=== PATIENT | female | born 1975 | race Caucasian/White ===

== ENCOUNTER → 2020-06-04 | Outpatient (CLI) | payer OTHER ==
--- NOTE | 2020-06-04 16:32 | RAD ---
XR HIP_LT 2-3 VIEWS, XR BILATERAL HIP (WITH OR WITHOUT PELVIS) 2 VIEWS_RIGHT 06/04/2020 9:50 AM INDICATION: Hip pain COMPARISON: None available. TECHNIQUE: AP view the pelvis. 2 dedicated views of each hip are provided. FINDINGS/ IMPRESSION: There is no acute fracture or dislocation. Mild to moderate inferomedial joint space narrowing of the right hip joint compatible with mild osteophytosis. No significant joint space narrowing the left hi p.. Bone mineralization is within normal limits. Regional soft tissues are within normal limits. Ther e is no soft tissue gas or osseous erosion. No radiopaque foreign body. Electronically signed by: Cornelia Grijalva MD (06/04/2020 4:30 PM) [id number]
--- NOTE | 2020-06-04 16:35 | RAD ---
XR LUMBAR SPINE 2-3V 06/04/2020 9:50 AM Indication: Low back pain COMPARISON: None available TECHNIQUE: 3 views of the lumbar spine are provided. Findings: There is minimal retrolisthesis of L1 on L2, L2 on L3, L3 on L4 and L4 on L5. Grade 1 retrolisthesis of L5 and S1. Mild disc height loss at L1-L2, L2-L3, L3-L4 and L5-S1. There is mild anterior wedging of L1 without significant height loss. Superior plate Schmorl's nodes are identified at L2, L3 and L4 without significant height loss. Mild to moderate facet arthropathy. No significant osseous neuroforaminal stenosis or spinal canal st enosis. Nonobstructive bowel gas pattern. Visualized portions of the sacrum appear intact. Impression: No acute fracture of the lumbar spine. There is mild lumbar spondylosis. Electronically signed by: Cornelia Grijalva MD (06/04/2020 4:33 PM) [id number]
== END ==
LOC: PMG 09:35
PROVIDERS: ATTEND Family Medicine
DX: M47.816 Spondylosis without myelopathy or radiculopathy, lumbar region (principal); M43.17 Spondylolisthesis, lumbosacral region; M25.751 Osteophyte, right hip; M25.551 Pain in right hip
CPT/HCPCS: 72100; 73502

== ENCOUNTER 2021-02-19 10:57 | Emergency (ER) | payer OTHER ==
[~2021-02-19] VITALS: Ht 170.2 cm; Wt 104.5 kg
[2021-02-19] MEDS ORDERED: HYDROcodone/APAP 5/325MG 1 TAB TABLET PO ONE (11:30)
--- NOTE | 2021-02-19 11:57 | RAD ---
EXAM: XR FOOT_LEFT 3 VIEWS 02/19/2021 11:24 AM CLINICAL INDICATION: Injury 2 weeks ago to foot, pain at base of fifth metatarsal. [place] a pop today. COMPARISON: None TECHNIQUE: 3 views of the left foot FINDINGS: There is a nondisplaced oblique fracture of the proximal fifth metatarsal shaft. There is associated cortical thickening. Alignment is normal. Joint spaces are maintained. Small Achilles inse rtional calcaneal enthesophyte. No focal soft tissue abnormality. IMPRESSION: Nondisplaced fifth metatarsal shaft fracture. Electronically signed by: Sally Grant MD (02/19/2021 11:55 AM) [id number]
[2021-02-19] MEDS ORDERED: HYDR-2155 PO (12:39)
--- NOTE | 2021-02-19 12:40 | PHYS DOC ---
Past History Past Surgical History: (LILIBETH CARRILLO APRN) Alcohol Use: Occasionally (LILIBETH CARRILLO APRN) General Adult EDM: Chief Complaint: FOOT INJURY PAIN HPI: HPI: Patient is a 45-year-old female who presents with left foot pain. Patient states "my son stepped on my foot a couple weeks ago and I have had pain in my foot since then". "This morning I was walking and heard my left foot pop". Patient states she is not been able to ambulate and has pain with range of m otion. Patient reports taking Motrin and ibuprofen prior to arrival at 7 AM. (LILIBETH CARRILLO APRN) Review of Systems: Review of Systems: ROS At least 10 ROS systems have been reviewed and are negative except as documented in the HPI. General: Negative except as outlined in HPI above. Skin: Negative except as outlined in HPI above. HEENT: Negative except as outlined in HPI above. Neck: Negative except as outlined in HPI above. Respiratory: Negative except as outlined in HPI above.. Cardiovascular: Negative except as outlined in HPI above. Abdomen: Negative except as outlined in HPI above. : Negative except as outlined in HPI above. Back/MSK: Negative except as outlined in HPI above. Neuro: Negative except as outlined in HPI above. Psych: Negative except as outlined in HPI above. (LILIBETH CARRILLO APRN) Current Medications: Current Meds: Current Medications Medications (Trade) Dose Ordered Sig/Ulisses Start Time Stop Time Status Last Admin Dose Admin Acetaminophen/ Hydrocodone Bitart (Lortab 5/325) 1 tab 1X ONCE 02/19/21 11:30 02/19/21 11:31 DC 02/19/21 11:51 1 TAB (LILIBETH CARRILLO APRN) Allergies: Allergies: Allergies Coded Allergies Type Severity Reaction Last Updated Verified neomycin Allergy Unknown Rash 02/19/21 Yes (LILIBETH CARRILLO APRN) Physical Exam: PE: Constitutional: Well developed, well nourished, no acute distress, non-toxic appearance. [] HENT: Normocephalic, atraumatic, bilateral external ears normal, oropharynx moist, no oral exudates, nose normal. [] Eyes: PERRLA, EOMI, conjunctiva normal, no discharge. [] Neck: Normal range of motion, no tenderness, supple, no stridor. [] Cardiovascular:Heart rate regular rhythm, no murmur [] Lungs & Thorax: Bilateral breath sounds clear to auscultation [] Abdomen: Bowel sounds normal, soft, no tenderness, no masses, no pulsatile masses. [] Skin: Warm, dry, no erythema, no rash. [] Back: No tenderness, no CVA tenderness. [] Extremities: Left foot tenderness, ROM intact, no edema. [] Neurologic: Alert and oriented X 3, normal motor function, normal sensory function, no focal deficits noted. [] Psychologic: Affect normal, judgement normal, mood normal. [] (LILIBETH CARRILLO APRN) Current Patient Data: Vital Signs: Vital Signs Date Time Temp Pulse Resp B/P (MAP) Pulse Ox O2 Delivery O2 Flow Rate FiO2 02/19/21 11:51 18 98 Room Air 02/19/21 11:09 98.2 77 124/74 (LILIBETH CARRILLO APRN) EKG: EKG: [] (LILIBETH CARRILLO APRN) Radiology/Procedures: Radiology/Procedures: []EXAM: XR FOOT_LEFT 3 VIEWS 02/19/2021 11:24 AM CLINICAL INDICATION: Injury 2 weeks ago to foot, pain at base of fifth metatarsal. [place] a pop today. COMPARISON: None TECHNIQUE: 3 views of the left foot FINDINGS: There is a nondisplaced oblique fracture of the proximal fifth metatarsal shaft. There is associated cortical thickening. Alignment is normal. Joint spaces are maintained. Small Achilles insertional calcaneal enthesophyte. No focal soft tissue abnormality. IMPRESSION: Nondisplaced fifth metatarsal shaft fracture. Electronically signed by: Sally Grant MD (02/19/2021 11:55 AM) [id number] (LILIBETH CARRILLO APRN) Heart Score: C/O Chest Pain: No Risk Factors: Risk Factors: DM, Current or recent (<one month) smoker, HTN, HLP, family history of CAD, obesity. Risk Scores: Score 0 - 3: 2.5% MACE over next 6 weeks - Discharge Home Score 4 - 6: 20.3% MACE over next 6 weeks - Admit for Clinical Observation Score 7 - 10: 72.7% MACE over next 6 weeks - Early Invasive Strategies (LILIBETH CARRILLO APRN) Course & Med Decision Making: Course & Med Decision Making Pertinent Labs and Imaging studies reviewed. (See chart for details) [] 45-year-old female presents with left foot pain after walking today and hearing her left foot pop. Neurovascularly intact. Unable to bear weight, pain with ROM. Patient given 5/325 hydrocodone. X-ray of left foot shows Nondisplaced fifth metatarsal shaft fracture. \\Posterior Ankle Splint, crutches, strict NWB, RICE, ortho follow up in 3-5 days. Patient sent home with hydrocodone for pain. Ibuprofen at home for breakthrough pain. Patient states she understands discharge instructions. (LILIBETH CARRILLO APRN) Course & Med Decision Making I was the Attending physician on the above date of service of this patient. This patient was evaluated, examined, treated, and dispositioned from the emergency department by the mid-level practitioner. I agreed need for splint/cast and outpatient Ortho follow-up Electronically signed, Bennie Steele DO (BENNIE STEELE DO) Lupillo Disclaimer: Lupillo Disclaimer: This electronic medical record was generated, in whole or in part, using a voice recognition dictation system. (LILIBETH CARRILLO APRN) Departure Departure: Impression: Primary Impression: Fracture of fifth metatarsal bone of left foot Qualified Codes: S92.355A - Nondisplaced fracture of fifth metatarsal bone, left foot, initial encounter for closed fracture Disposition: HOME / SELF CARE / HOMELESS Condition: STABLE Referrals: HETAL MOLINA MD (PCP) Patient Instructions: Metatarsal Fracture, Undisplaced, RICE - Routine Care for Injuries, [id number] Additional Instructions: You are seen in the emergency room for left foot pain. X-ray showed a fracture to the fifth metatarsal. Ankle splint was placed and crutches. You must use crutches and stay nonweightbearing until you are able to follow-up with Ortho and have further management instructions I am sending you home with hydrocodone for pain. You can also take ibuprofen. It is important to rest, ice, elevation of foot to help with swelling and pain. EMERGENCY DEPARTMENT GENERAL DISCHARGE INSTRUCTIONS Thank you for coming to [facility] (ED) today and trusting us with you care. We trust that you had a positivie experience in our Emergency Department. If you wish to speak to the department management, you may call the director at [phone]. YOUR FOLLOW UP INSTRUCTIONS ARE FOLLOWS: 1. Do you have a private Doctor? If you do not have a private doctor, please ask for a resource list of physicians or clinics that may be able to assist you with follow up care. 2. The Emergency Physician has interpreted your x-rays. The X-Ray specialist will also review them. If there is a change in the findings, you will be notified in 48 hours when at all possible. 3. A lab test or culture has been done, your results will be reviewed and you will be notified if you need a change in treatment. ADDITIONAL INSTRUCTIONS AND INFORMATION: 1. Your care today has been supervised by a physician who is specially trained in emergency care. Many problems require more than one evaluation for a complete diagnosis and treatment. We recommend that you schedule your follow up appointment as recommended to ensure complete treatment of you illness or injury. If you are unable to obtain follow up care and continue to have a problem, or if your condition worsens, we recommend that you return to the ED. 2. We are not able to safely determine your condition over the phone nor are we able to give sound medical advice over the phone. For these safety reasons, if you call for medical advice we will ask you to come to the ED for further evaluation. 3. If you have any questions regarding these discharge instructions please call the ED at [phone]. SAFETY INFORMATION: In the interest of safety, wellness, and injury prevention; we encourage you to wear your sealbelt, if you smoke; quite smoking, and we encourage family to use a protective helmet for bicycling and other sporting events that present an increased risk for head injury. IF YOUR SYMPTOMS WORSEN OR NEW SYMPTOMS DEVELOP, OR YOU HAVE CONCERNS ABOUT YOUR CONDITION; OR IF YOUR CONDITION WORSENS WHILE YOU ARE WAITING FOR YOUR FOLLOW UP APPOINTMENT; EITHER CONTACT YOUR PRIMARY CARE DOCTOR, THE PHYSICIAN WHOSE NAME AND NUMBER YOU WERE GIVEN, OR RETURN TO THE ED IMMEDIATELY. Scripts Hydrocodone Bit/Acetaminophen (HYDROCODONE-APAP 5-325 ) 1 Each Tablet 0.5-1 TAB PO PRN Q6HRS PRN for PAIN for 3 Days, #12 TAB 0 Refills Prov: LILIBETH CARRILLO APRN 02/19/21 LILIBETH CARRILLO APRN Feb 19, 2021 12:40 BENNIE STEELE DO Feb 20, 2021 07:24
[2021-02-19 13:12] VITALS: BP 139/93
== END 2021-02-19 13:14 | disposition home or self-care (01) ==
LOC: ER 10:57
DX: S92.355A Nondisplaced fracture of fifth metatarsal bone, left foot, initial encounter for closed fracture (principal); Z88.1 Allergy status to other antibiotic agents; X50.9XXA Other and unspecified overexertion or strenuous movements or postures, initial encounter; Y93.01 Activity, walking, marching and hiking; Y92.89 Other specified places as the place of occurrence of the external cause; Y99.8 Other external cause status
CPT/HCPCS: 29515; 73630; 99283